=== PATIENT | female | born 1960 | race Caucasian/White ===

== ENCOUNTER 2017-01-21 08:36 | Outpatient (CLI) | payer OTHER ==
[2015-01-29 11:25] VITALS: O2SAT 96
[2017-01-21 09:22] LABS: BASOPHILS % (AUTO) 1 % (0-3); EOSINOPHILS % (AUTO) 1 % (0-9); HEMATOCRIT 42 % (35-47); MEAN CORPUSCULAR HGB CONC 34.4 gm/dl (32.0-36.0); MEAN CORPUSCULAR VOLUME 89 fL (81-99); MONOCYTES % (AUTO) 9.8 % (0-12); NEUTROPHILS % (AUTO) 50.4 % (37-80)
== END 2017-01-21 08:37 | disposition home or self-care (01) ==
LOC: CONVCARE 08:36
PROVIDERS: ATTEND Orthopaedic Surgery
DX: M25.551 Pain in right hip (principal); Z96.643 Presence of artificial hip joint, bilateral
CPT/HCPCS: 36415; 72170; 73502; 85025; 85651

== ENCOUNTER 2017-02-24 08:31 | Outpatient (CLI) | payer OTHER ==
[2015-01-29 11:25] VITALS: O2SAT 96
== END 2017-02-24 08:32 | disposition home or self-care (01) ==
LOC: RAD 08:31
PROVIDERS: ATTEND Orthopaedic Surgery
DX: M25.551 Pain in right hip (principal)
CPT/HCPCS: 73721; 74181; Q9967

== ENCOUNTER 2017-09-01 10:30 | Emergency (ER) | payer OTHER ==
[2017-09-01] MEDS ORDERED: NITROGLYCERIN 0.4 MG TAB SL PRN (10:40)
[2017-09-01] MEDS ORDERED: ALBUTEROL/IPRATROPIUM 1 VIAL SOL ONE (10:47)
[2017-09-01 10:52] LABS: BASOPHILS % (AUTO) 1 % (0-3); EOSINOPHILS % (AUTO) 1 % (0-9); HEMATOCRIT 43 % (35-47); MEAN CORPUSCULAR HGB CONC 33.6 gm/dl (32.0-36.0); MEAN CORPUSCULAR VOLUME 92 fL (81-99); MONOCYTES % (AUTO) 6.9 % (0-12); NEUTROPHILS % (AUTO) 49.7 % (37-80)
[2017-09-01] MEDS: ALUMINUM/MAGNESIUM 30 ML SUS PO ONE (10:57)
[2017-09-01] MEDS: LIDOCAINE HCL 2% (VISCOUS) 20 ML SOL MT ONE (10:57)
[2017-09-01] MEDS ORDERED: ALUMINUM/MAGNESIUM 30 ML SUS ONE (10:58)
[2017-09-01] MEDS ORDERED: LIDOCAINE HCL 2% (VISCOUS) 20 ML SOL ONE (10:59)
[2017-09-01] MEDS: ALBUTEROL/IPRATROPIUM 1 VIAL SOL INH ONE (11:03)
[2017-09-01 11:08] LABS: ALT 28 IU/L (14-63); CALCIUM 9.4 mg/dl (8.5-10.1); GLOM FILT RATE 74 mL/min (>60); POTASSIUM 4.1 mMol/L (3.5-5.1); SODIUM 138 mMol/L (136-145)
[2017-09-01 11:11] VITALS: TEMP 98.2
[2017-09-01] MEDS ORDERED: ONDANSETRON HCL 4 MG/2 ML SOL ONE (12:02)
[2017-09-01 12:05] LABS: APPEARANCE,URINE Clear; BILIRUBIN,URINE NEGATIVE (NEGATIVE); COLOR,URINE Yellow; GLUCOSE, URINE (UA) NEGATIVE (NEGATIVE); KETONES,URINE NEGATIVE (NEGATIVE); LEUKOCYTE ESTERASE ,URINE NEGATIVE (NEGATIVE); NITRATE,URINE NEGATIVE (NEGATIVE); OCCULT BLOOD,URINE NEGATIVE (NEG-TRACE); UROBILINOGEN,URINE 0.2 (0.2-1.0 EU)
[2017-09-01] MEDS: ONDANSETRON HCL 4 MG/2 ML SOL IV ONE (12:05)
[2017-09-01] MEDS: SODIUM CHLORIDE 0.9% FLUSH 10 ML SOL IV PRN (12:05)
[2017-09-01 12:26] LABS: RBC,URINE NEGATIVE (0-3AV/HPF); WBC,URINE NEGATIVE (0-5AV/HPF)
[2017-09-01 13:17] VITALS: BP 106/66; PULSE 72; RESP 16; O2SAT 94
== END 2017-09-01 13:15 | disposition home or self-care (01) ==
LOC: ED 10:30
DX: R55 Syncope and collapse (principal); R06.02 Shortness of breath; R11.0 Nausea; J45.909 Unspecified asthma, uncomplicated
CPT/HCPCS: 36415; 71020; 80053; 81001; 82550; 84443; 84484; 85025; 85610; 85730; 93005; 99285; J2405; J7620

== ENCOUNTER 2019-04-18 11:59 | Day surgery (SDC) | payer BC ==
[2019-04-18] MEDS ORDERED: PROPOFOL 500 MG/50 ML EMU IV ONE (12:22)
[2019-04-18] MEDS ORDERED: FENTANYL 100MCG/2ML SOL ONE (12:22)
[2019-04-18 12:27] VITALS: TEMP 97.6
[2019-04-18 14:00] VITALS: RESP 16
[2019-04-18 14:16] VITALS: O2SAT 94
[2019-04-18 14:41] VITALS: PULSE 66
[2019-04-18 14:45] VITALS: BP 140/88
== END 2019-04-18 14:55 | disposition home or self-care (01) ==
LOC: SURG 11:59
PROVIDERS: ATTEND Surgery
DX: R10.13 Epigastric pain (principal); R63.4 Abnormal weight loss
CPT/HCPCS: J3010; J2704